=== PATIENT | female | born 1955 | race Caucasian/White ===

== ENCOUNTER 2022-01-12 13:45 | Emergency (ER) | payer MEDICARE, OTHER ==
[~2022-01-12] VITALS: Ht 163 cm; Wt 88.0 kg
--- NOTE | 2022-01-12 15:24 | Diagnostic Imaging Report ---
PATIENT HISTORY: Injury. TECHNIQUE: Two views of the chest. COMPARISON: None. FINDINGS: The lung volumes are normal. No focal consolidation is seen. No large pleural effusion or pneumothorax is seen. The cardiomediastinal silhouette is normal in size and contour. There may be mild cortical irregularity at the lateral right 5th rib. IMPRESSION: Questioned mild cortical irregularity of the lateral right 5th rib, please correlate with point tenderness to exclude acute fracture. No acute pulmonary abnormality is seen. Dictated by: Dictated on workstation # [id number]
--- NOTE | 2022-01-12 15:33 | Diagnostic Imaging Report ---
PROCEDURE: CT head and CT cervical spine without contrast. TECHNIQUE: Multiple contiguous axial images were obtained through the brain and cervical spine without the use of intravenous contrast. Sagittal and coronal reformations through the cervical spine were then performed. Auto Exposure Controls were utilized during the CT exam to meet ALARA standards for radiation dose reduction. INDICATION: Trauma to the head and neck, hematoma of the right forehead, head and neck injury. COMPARISON: None. FINDINGS: CT HEAD: The ventricles and cortical sulci are age-appropriate. There is no midline shift or mass effect. No acute intracranial hemorrhage is seen. There is no CT evidence of acute territorial ischemia. The calvarium appears intact. Visualized paranasal sinuses are clear. There is a small right frontal scalp hematoma measuring about 2.[address] CERVICAL SPINE: There is straightening of the cervical lordosis with no significant spondylolisthesis. There are severe degenerative changes at C5-C6 and moderate at C4-C5 and C6-C7. Mild degenerative changes are seen elsewhere in the cervical spine. There is multilevel facet arthropathy with some bony bridging in the posterior elements of the upper cervical spine. No acute fracture is seen in the cervical spine. No bony fragment or hyperdense fluid collection is identified. Osteophytes at the C5-C6 level cause severe spinal canal stenosis. Surrounding soft tissues demonstrate no acute abnormality. IMPRESSION: 1. Small right frontal scalp hematoma. No calvarium fracture or acute intracranial hemorrhage. 2. Degenerative changes in the cervical spine causing spinal canal stenosis at C5-C6. No fracture is seen. Dictated by: Dictated on workstation # [email or web address]
--- NOTE | 2022-01-12 15:46 | ED Fall/Injury ---
General Chief Complaint: General Problems/Pain Stated Complaint: HIT IN R RIBS/HEAD Nursing Triage Note: PT STATES SHE WAS HIT WITH A GATE WHEN A COW HIT THE GATE, CC OF A HEMATOMA ON THE HEAD RT SIDE, DENIES NECK PAIN AND NO LOC, NOT ON BLOOD THINNERS, PAIN IN RT SIDE FRONT TO BACK. THE GATE KNOCKED HER ABOUT 10 FEET. Source: patient, family (MILAGRO GAMBLE) History of Present Illness Date Seen by Provider: Jan 12, 2022 Time Seen by Provider: 15:42 Initial Comments This is a 66-year-old female who presents to the emergency room for evaluation of a head injury and right rib pain. 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 She states that she did not have LOC. Currently rates her pain as a dull 4/10. Occurred: just prior to arrival Severity: moderate Injuries/Pain Location: head, neck, chest (MILAGRO GAMBLE) Allergies and Home Medications Patient Home Medication List Home Medication List Reviewed: Yes (MILAGRO GAMBLE) Review of Systems Review of Systems Constitutional: no symptoms reported Eyes: No Symptoms Reported, Other (right scalp hematoma) Ears, Nose, Mouth, Throat: no symptoms reported Respiratory: other (ttp right lateral chest) Cardiovascular: no symptoms reported Musculoskeletal: see HPI Skin: no symptoms reported (MILAGRO GAMBLE) Past Poxxolk-Gkysrh-Dwaptm Hx Patient Social History Tobacco Use?: No Substance use?: No Alcohol Use?: No (MILAGRO GAMBLE) Past Medical History Surgery/Hospitalization HX: HYSTERECTOMY, APPENDIX, GALLBLADDER, GASTERIC SLEEVE, BI LAT KNEES REPLACED (MILAGRO GAMBLE) Physical Exam Vital Signs Vital Signs - First Documented 01/12/22 13:57 Temp 36.9 Pulse 79 Resp 20 B/P (MAP) 152/91 (111) Pulse Ox 100 O2 Delivery Room Air (JIMMY DUMAS MD) Vital Signs Capillary Refill : Less Than 3 Seconds (MILAGRO GAMBLE) Height, Weight, BMI Height: '" Weight: lbs. oz. kg; 33.00 BMI Method: General Appearance: WD/WN, no apparent distress HEENT: other (Hematoma right anterior scalp ) Neck: non-tender, full range of motion, supple Cardiovascular: regular rate, rhythm Respiratory: other (ttp right lateral ribs) Gastrointestinal: non tender, soft Back: normal inspection Neurologic/Psychiatric: grocery specialist II-XII nml as tested, oriented x 3 (MILAGRO GAMBLE) Heber Coma Score Best Eye Response: (4) Open Spontaneously Best Verbal Response: (5) Oriented Best Motor Response: (6) Obeys Commands (MILAGRO GAMBLE) Progress/Results/Core Measures Results/Orders Vital Signs/I&O 01/12/22 01/12/22 13:57 15:58 Temp 36.9 36.9 Pulse 79 79 Resp 20 20 B/P (MAP) 152/91 (111) 152/91 Pulse Ox 100 100 O2 Delivery Room Air Room Air (JIMMY DUMAS MD) Blood Pressure Mean: 111 Departure Communication (Admissions) Patient has a right 5th/6th questionable rib fracture. CT of the head and c ervical spine were negative. We will treat the symptoms so the patient and we discussed the importance of taking deep breaths. She does not wish to have an incentive spirometer at this time. Patient will return if worse. No evidence for suspicion of hemothorax, pneumothorax, intracranial hemorrhage, skull fracture or cervical fracture. (MILAGRO GAMBLE) Impression Primary Impression: Rib fractures Additional Impression: Closed head injury Disposition: 01 HOME, SELF-CARE Condition: Stable Departure-Patient Inst. Decision time for Depature: 15:48 (MILAGRO GAMBLE) [facility] Primary Care Physician JONI VELASQUEZ (Family) Primary Care Physician Patient Instructions: Minor Head Injury, Rib Fracture or Bruised Rib ED Add. Discharge Instructions: Please return to the emergency room with any severe changes or worsening of symptoms. All discharge instructions reviewed with patient and/or family. Voiced understanding. ATTENDING PHYSICIAN NOTE: I was physically present as attending physician in the emergency department during the care of this patient, but I was not directly involved in the decision making or delivery of care for this patient. (JIMMY DUMAS MD) MILAGRO GAMBLE Jan 12, 2022 15:46 JIMMY DUMAS MD Jan 12, 2022 21:07
[2022-01-12 15:58] VITALS: BP 152/91
== END 2022-01-12 15:58 | disposition home or self-care (01) ==
LOC: EDUNIT# 13:45 → ER 13:47
DX: S22.41XA Multiple fractures of ribs, right side, initial encounter for closed fracture (principal); S09.90XA Unspecified injury of head, initial encounter; W22.8XXA Striking against or struck by other objects, initial encounter; Y93.K9 Activity, other involving animal care
CPT/HCPCS: 70450; 71046; 72125

== ENCOUNTER 2022-02-19 13:03 | Emergency (ER) | payer MEDICARE, OTHER ==
[~2022-02-19] VITALS: Ht 162.6 cm; Wt 84.8 kg
[2022-02-19 13:10] VITALS: BP 148/76
[2022-02-19] MEDS ORDERED: TETRACAINE 0.5% OPHTH SOLN 4 ML BTL (SINGLE DOSE ONLY) OP ONE (13:30)
--- NOTE | 2022-02-19 13:33 | ED Headache ---
General Chief Complaint: Head/Cervical Problems Stated Complaint: TREVIZO R SIDE OF HEAD, R EYE PRESSURE, SEEN 01/12 Nursing Triage Note: pt ambulatory to room, states she was sent by the clinic. pt reports head injury on 01/12/22. pt states 2 weeks after the injury she began having severe right sided headaches and pain that radiates from right sided neck to right sided face and ear. pt also reports dizziness, fatigue, lightheadedness, and feeling off balance all started about the same time as well. pt reports all these symptoms have only gotten worse as time goes on. pt also reports a "random spike in blood pressure" last week and had to be started on a bp med. Source: patient Exam Limitations: no limitations History of Present Illness Date Seen by Provider: Feb 19, 2022 Time Seen by Provider: 13:18 Initial Comments Patient is a 66-year-old female who presents to the emergency room today with a chief complaint of right-sided occipital headache, pressure behind her right eye, intermittent dizziness, nausea fatigue, increasing blood pressure and feeling off balance. Symptoms have been progressive since approximately 24 January. She had a head injury, hit by a a cattle gate and a large cow on January 12. She did not have a loss of consciousness at that time. She is on no blood thinners. She has not had any syncopal events. She states her hearing seems "off" on the right. She has been taking tramadol for her headache. She states the headache is constant. Her symptoms are intensified with walking. She endorses photophobia. She was recently started on blood pressure medications because her blood pressure was found to be greater than 200 systolic a couple of weeks ago and she believes it is related to the head injury. She presents to the ER desiring repeat CAT scan. All other review of systems reviewed and negative except as stated. Timing/Duration: constant, increasing Severity/Quality: severe, achy, pressure Modifying Factors: worse with exposure to light Associated Symptoms: other (numbness to right side of face) Allergies and Home Medications Allergies Coded Allergies: No Known Drug Allergies (Unverified , 02/19/22) Patient Home Medication List Home Medication List Reviewed: Yes Naproxen (Naprosyn) 500 Mg Tablet, 500 MG PO BID Prescribed by: ARON RIZO on 02/19/22 6506 Review of Systems Review of Systems Constitutional: see HPI Eyes: Pain, Photophobia Ears, Nose, Mouth, Throat: ear pain (ear fukllness right) Respiratory: no symptoms reported Cardiovascular: no symptoms reported Gastrointestinal: nausea Genitourinary: no symptoms reported : No Musculoskeletal: no symptoms reported Skin: no symptoms reported Psychiatric/Neurological: Headache, Numbness, Paresthesia (right face), Other (dizziness and balance issues) All Other Systems Reviewed Negative Unless Noted: Yes Past Qsiaanj-Ywkftb-Qkxdmz Hx Patient Social History Tobacco Use?: No Use of E-Cig and/or Vaping dev: No Substance use?: No Alcohol Use?: No Immunizations Up To Date Influenza Vaccine Up-to-Date: Yes; Up-to-Date Past Medical History Surgery/Hospitalization HX: HYSTERECTOMY, APPENDIX, GALLBLADDER, GASTERIC SLEEVE, BI LAT KNEES REPLACED Physical Exam Vital Signs Vital Signs - First Documented 02/19/22 13:10 Temp 36.4 Pulse 75 Resp 16 B/P (MAP) 148/76 (100) Pulse Ox 98 Capillary Refill : Height, Weight, BMI Height: '" Weight: lbs. oz. kg; 32.00 BMI Method: Procedures/Interventions Eye : Anesthesia (gtts): Tetracaine Intraocular Pressure: (L) eye (MM) (), Per Tonopen, (R) eye (mm) () Progress/Results/Core Measures Results/Orders My Orders Orders - ARON RIZO MD Tetracaine 0.5% Ophth Cherelle Sdv (Tetracai (02/19/22 13:30) Ct Head Wo (02/19/22 13:57) Medications Given in ED Current Medications Medications Dose Ordered Sig/Jeannette Route Start Time Stop Time Status Last Admin Dose Admin Tetracaine HCl 1 OR 2 DROPS INTO AFFEC... ONCE ONCE OP 02/19/22 13:30 02/19/22 13:31 DC 02/19/22 13:56 0.5 ML Vital Signs/I&O 02/19/22 13:10 Temp 36.4 Pulse 75 Resp 16 B/P (MAP) 148/76 (100) Pulse Ox 98 Blood Pressure Mean: 100 Progress Progress Note : Time: 14:[address] looks good, no sign of SDH. I advised her to take some naproxen for about 1 week. Get plenty of rest and hydration and follow up with PCP. return precautions provided. She verbalized understanding. All questions are sought and answered. Diagnostic Imaging Diagonstic Imaging: CT Comments [facility], [place] NAME: ABBIE [facility] REC#: [id number] PT STATUS: REG ER : 1955 PHYSICIAN: ARON RIZO MD ADMIT DATE: 02/19/22/ER Draft Date of Exam:02/19/22 CT HEAD WO EXAMINATION: CT head without contrast. TECHNIQUE: Multiple contiguous axial images were obtained through the brain without the use of intravenous contrast. All CT scans use one or more of the following dose optimizing techniques: Automated exposure control, MA and/or KvP adjustment based on patient size and exam type or iterative reconstruction. HISTORY: Head injury. COMPARISON: 01/12/2022. FINDINGS: The lo-white matter differentiation is normal. No mass effect or midline shift. The ventricles are normal in size and configuration. Basilar cisterns are patent. There are no intra- or extra-axial fluid collections. There is no intracranial hemorrhage. The orbits are normal. Paranasal sinuses are normal. Mastoid air cells are clear. No soft tissue abnormality is seen. No osseous lesions or fractures are seen. IMPRESSION: 1. No acute intracranial abnormality. Dictated on workstation # [id number] Dict: 02/19/22 1414 Trans: 02/19/22 1417 [id number] Interpreted by: FAM RICKETTS MD Electronically signed by: Departure Impression Primary Impression: Occipital headache Additional Impression: Post concussion syndrome Disposition: 01 HOME, SELF-CARE Condition: Stable Departure-Patient Inst. Decision time for Depature: 14:33 [facility] Primary Care Physician JONI VELASQUEZ (Family) Primary Care Physician Patient Instructions: Postconcussion Syndrome (DC) Add. Discharge Instructions: Drink plenty of fluids to stay well-hydrated. Get adequate rest and nutrition. Take the naproxen twice daily with food for the next week. Return to the emergency department for any new, concerning or emergent complaints Scripts Naproxen (Naprosyn) 500 Mg Tablet 500 MG PO BID, #20 TAB 0 Refills take the food Prov: ARON RIZO MD 02/19/22 Copy Copies To 1: LIAM OCONNOR KATHRYN M MD Feb 19, 2022 13:33
--- NOTE | 2022-02-19 14:18 | Diagnostic Imaging Report ---
EXAMINATION: CT head without contrast. TECHNIQUE: Multiple contiguous axial images were obtained through the brain without the use of intravenous contrast. All CT scans use one or more of the following dose optimizing techniques: Automated exposure control, MA and/or KvP adjustment based on patient size and exam type or iterative reconstruction. HISTORY: Head injury. COMPARISON: 01/12/2022. FINDINGS: The lo-white matter differentiation is normal. No mass effect or midline shift. The ventricles are normal in size and configuration. Basilar cisterns are patent. There are no intra- or extra-axial fluid collections. There is no intracranial hemorrhage. The orbits are normal. Paranasal sinuses are normal. Mastoid air cells are clear. No soft tissue abnormality is seen. No osseous lesions or fractures are seen. IMPRESSION: 1. No acute intracranial abnormality. Dictated by: Dictated on workstation # [id number]
[2022-02-19] MEDS ORDERED: NAPR-1071 PO (14:36)
== END 2022-02-19 14:53 | disposition home or self-care (01) ==
LOC: EDUNIT# 13:03 → ER 13:06
DX: F07.81 Postconcussional syndrome (principal)
CPT/HCPCS: 70450